=== PATIENT | male | born 1950 | race Caucasian/White ===

== ENCOUNTER → 2016-06-19 | Outpatient (CLI) | payer BC ==
[~2016-06-19] MED LIST: FERROUS SU325 MG/TAB PO; FOLIC ACID 40400 MCG PO; PRAVASTATIN40 MG PO; PRILOSEC OTC20 MG PO; VITAMIN C BUFF500 MG PO; ZESTRIL 20MG TA20 MG PO; ZETIA 10MG TAB10 MG PO
[2016-06-19 17:39] LABS: HIV 1/2 Antibodies Non-Reactive; HIV-1p24 Antigen Non-Reactive
== END ==
LOC: COL.LAB 16:40
PROVIDERS: Orthopaedic Surgery
DX: Z01.812 Encounter for preprocedural laboratory examination (principal); M25.852 Other specified joint disorders, left hip

== ENCOUNTER → 2017-02-20 | Outpatient (CLI) | payer BC ==
[2017-02-20 10:56] LABS: HEMOGLOBIN 12.5 g/dl (13.5-18.0); MEAN CELL VOLUME 91 fl (80.0-100.0); MEAN CORPUSCULAR HEMOGLOBIN 30 pg (27.0-31.0); MEAN CORPUSCULAR HGB CONC 33 g/dl (33.0-37.0); MEAN PLATELET VOLUME 9.4 fl (7.4-10.4); PLATELET COUNT 366 K/mm3 (130-400); RED BLOOD COUNT 4.19 M/mm3 (4.20-5.60); WHITE BLOOD COUNT 8.8 K/mm3 (4.8-10.8)
[2017-02-20 11:20] LABS: ERYTHROCYTE SEDIMENTATION RATE 96 mm/hr (0-30)
== END ==
LOC: COL.LAB 10:24
PROVIDERS: Orthopaedic Surgery
DX: Z01.812 Encounter for preprocedural laboratory examination (principal); M25.552 Pain in left hip

== ENCOUNTER → 2017-03-06 | Outpatient (CLI) | payer BC ==
[2017-03-06 13:20] LABS: HEMATOCRIT 39.8 % (42.0-52.0); HEMOGLOBIN 12.7 g/dl (13.5-18.0); MEAN CELL VOLUME 92 fl (80.0-100.0); MEAN CORPUSCULAR HEMOGLOBIN 29 pg (27.0-31.0); MEAN CORPUSCULAR HGB CONC 32 g/dl (33.0-37.0); PLATELET COUNT 312 K/mm3 (130-400); RED BLOOD COUNT 4.35 M/mm3 (4.20-5.60); WHITE BLOOD COUNT 9.8 K/mm3 (4.8-10.8)
[2017-03-06 13:44] LABS: ERYTHROCYTE SEDIMENTATION RATE 38 mm/hr (0-30)
== END ==
LOC: COL.LAB 11:35
PROVIDERS: Orthopaedic Surgery
DX: M25.552 Pain in left hip (principal)

== ENCOUNTER → 2017-03-20 | Outpatient (CLI) | payer BC ==
[2017-03-20 16:53] LABS: HEMATOCRIT 39.4 % (42.0-52.0); HEMOGLOBIN 12.7 g/dl (13.5-18.0); MEAN CELL VOLUME 90 fl (80.0-100.0); MEAN CORPUSCULAR HEMOGLOBIN 29 pg (27.0-31.0); MEAN CORPUSCULAR HGB CONC 32 g/dl (33.0-37.0); MEAN PLATELET VOLUME 9.6 fl (7.4-10.4); PLATELET COUNT 422 K/mm3 (130-400); RED BLOOD COUNT 4.39 M/mm3 (4.20-5.60); WHITE BLOOD COUNT 8.5 K/mm3 (4.8-10.8)
[2017-03-20 17:25] LABS: ERYTHROCYTE SEDIMENTATION RATE 40 mm/hr (0-30)
== END ==
LOC: COL.LAB 16:28
PROVIDERS: Orthopaedic Surgery
DX: Z47.1 Aftercare following joint replacement surgery (principal); M25.852 Other specified joint disorders, left hip; Z96.642 Presence of left artificial hip joint

== ENCOUNTER → 2017-03-27 | Outpatient (CLI) | payer BC | LOC: COL.RAD 14:00 | DX: M25.551 Pain in right hip (principal); Z96.642 Presence of left artificial hip joint | CPT/HCPCS: J3301; Q9967 ==

== ENCOUNTER → 2017-04-19 | Outpatient (CLI) | payer BC ==
[2017-04-19 11:47] LABS: HEMATOCRIT 37.5 % (42.0-52.0); HEMOGLOBIN 12.2 g/dl (13.5-18.0); MEAN CELL VOLUME 89 fl (80.0-100.0); MEAN CORPUSCULAR HEMOGLOBIN 29 pg (27.0-31.0); MEAN CORPUSCULAR HGB CONC 33 g/dl (33.0-37.0); MEAN PLATELET VOLUME 9.4 fl (7.4-10.4); PLATELET COUNT 314 K/mm3 (130-400); RED BLOOD COUNT 4.23 M/mm3 (4.20-5.60); REDCELL DISTRIBUTION WIDTH-CV 14.4 % (11.5-14.5)
[2017-04-19 12:14] LABS: ERYTHROCYTE SEDIMENTATION RATE 26 mm/hr (0-30)
== END ==
LOC: COL.LAB 11:06
PROVIDERS: Orthopaedic Surgery
DX: M25.552 Pain in left hip (principal)

== ENCOUNTER → 2017-06-24 | Outpatient (CLI) | payer BC ==
[2017-06-24 11:22] LABS: HEMATOCRIT 43.5 % (42.0-52.0); HEMOGLOBIN 14.2 g/dl (13.5-18.0); MEAN CELL VOLUME 90 fl (80.0-100.0); MEAN CORPUSCULAR HEMOGLOBIN 30 pg (27.0-31.0); MEAN CORPUSCULAR HGB CONC 33 g/dl (33.0-37.0); MEAN PLATELET VOLUME 9.8 fl (7.4-10.4); PLATELET COUNT 329 K/mm3 (130-400); RED BLOOD COUNT 4.81 M/mm3 (4.20-5.60); REDCELL DISTRIBUTION WIDTH-CV 12.8 % (11.5-14.5)
[2017-06-24 11:45] LABS: ERYTHROCYTE SEDIMENTATION RATE 27 mm/hr (0-30)
== END ==
LOC: COL.LAB 10:39
PROVIDERS: Orthopaedic Surgery
DX: M25.552 Pain in left hip (principal); Z96.642 Presence of left artificial hip joint; Z98.890 Other specified postprocedural states

== ENCOUNTER → 2017-07-03 | Outpatient (CLI) | payer BC ==
[2017-07-03 12:41] LABS: SYNOVIAL FLUID RBC 2000 /mm3 (0-0); SYNOVIAL FLUID WBC 25766 /mm3 (200-600)
[2017-07-03 13:15] LABS: SYNOVIAL FLUID APPEARANCE CLOUDY; SYNOVIAL FLUID COLOR BROWN
== END ==
LOC: COL.RAD 08:00
PROVIDERS: Orthopaedic Surgery
DX: M25.552 Pain in left hip (principal)

== ENCOUNTER 2017-07-17 12:13 | Inpatient (IN) | payer BC, MEDICARE ==
[~2017-07-17] VITALS: Ht 180.3 cm; Wt 89.9 kg
[~2017-07-17 12:13] MED LIST changes: -PRILOSEC OTC20 MG PO; +PRILOTC PO
[2017-07-29] VITALS (10 sets, daily range): BP systolic 110–150; BP diastolic 71–84; PULSE 84–101; TEMP 98–98.5
[2017-07-29] MEDS ORDERED: VALIUM 5MG T5 MG/TAB PO (05:21)
[2017-07-29] MEDS ORDERED: PRINZIDE 12.5 M1 TA1 PO (05:21)
[2017-07-29] MEDS ORDERED: ZOCOR 20MG20 MG PO (05:22)
[2017-07-29] MEDS ORDERED: NORCO 325 MG-101 TAB PO (05:22)
[2017-07-30] VITALS (7 sets, daily range): BP systolic 106–128; BP diastolic 62–71; PULSE 84–94; TEMP 98.3–100.7
[2017-07-30 06:31] LABS: HEMATOCRIT 32.1 % (42.0-52.0); HEMOGLOBIN 10.5 g/dl (13.5-18.0)
[2017-07-30 08:39] LABS: CREATININE, serum 0.79 mg/dL (0.66-1.25)
[2017-07-31 00:30] VITALS: BP 111/65; PULSE 87; TEMP 99.8
[2017-07-31 04:51] VITALS: BP 112/72; PULSE 83; TEMP 99.4
[2017-07-31 07:05] VITALS: BP 105/67; PULSE 81; TEMP 98.7
[2017-07-31 07:36] LABS: CREATININE, serum 0.81 mg/dL (0.66-1.25)
[2017-07-31 11:31] VITALS: BP 109/67; PULSE 85; TEMP 98
[2017-07-31 16:43] VITALS: BP 117/69; PULSE 89; TEMP 98.7
[2017-07-31 20:17] VITALS: BP 113/36; PULSE 84; TEMP 98.5
[2017-08-01 04:00] VITALS: BP 116/68; PULSE 86; TEMP 98.4
[2017-08-01 06:24] LABS: BASO % 0.5 % (0.0-2.0); EOS # 0.4 (0.0-0.7); EOS % 4.8 % (0-4.0); GRAN # 6.1 (1.4-6.5); GRAN % 69.8 % (42.2-75.2); LYMPH # 1.2 (1.2-3.4); LYMPH % 13.4 % (20.0-51.0); MEAN CELL VOLUME 90 fl (80.0-100.0); MEAN CORPUSCULAR HGB CONC 33 g/dl (33.0-37.0); MEAN PLATELET VOLUME 10.1 fl (7.4-10.4); PLATELET COUNT 275 K/mm3 (130-400); REDCELL DISTRIBUTION WIDTH-CV 12.1 % (11.5-14.5)
[2017-08-01 06:27] LABS: HEMATOCRIT 29.6 % (42.0-52.0); HEMOGLOBIN 9.7 g/dl (13.5-18.0); MEAN CORPUSCULAR HEMOGLOBIN 29 pg (27.0-31.0)
[2017-08-01 06:40] LABS: CREATININE, serum 0.72 mg/dL (0.66-1.25)
[2017-08-01] MEDS ORDERED: HEPARIN LOCK FLU5 M1 IV (07:01)
[2017-08-01] MEDS ORDERED: XARELTO10 MG PO (07:02)
[2017-08-01] MEDS ORDERED: NORCO 325 MG-7.1 TAB PO (07:03)
[2017-08-01] MEDS ORDERED: ROXICODONE 55 MG/TAB PO (07:04)
[2017-08-01] MEDS ORDERED: NS INT FLUSH 1010 ML IV (07:04)
[2017-08-01] MEDS ORDERED: Patient's Own Medica PO (07:05)
[2017-08-01] MEDS ORDERED: SENOKOT S 50 MG1 TAB PO (07:06)
[2017-08-01] MEDS ORDERED: VANCOCIN HCL1 GM IV (07:22)
[2017-08-01] MEDS ORDERED: ROCEPHIN 2GM VIAL21 IJ (07:22)
[2017-08-01 07:48] VITALS: BP 111/67; PULSE 87; TEMP 99.1
[2017-08-01 10:14] VITALS: BP 111/67; PULSE 87; TEMP 99.1
[2017-08-01 11:00] VITALS: BP 112/70; PULSE 81; TEMP 99
== END 2017-08-01 13:10 | DRG 468 ==
LOC: SURG 07-23 15:45 → JCC 07-29 06:03
PROVIDERS: Internal Medicine Infectious Disease; Orthopaedic Surgery
PROC: 0SPB09Z Removal of Liner from Left Hip Joint, Open Approach (ICD-10-PCS; 2017-07-29)
PROC: 0SUS09Z Supplement Left Hip Joint, Femoral Surface with Liner, Open Approach (ICD-10-PCS; 2017-07-29)
PROC: 0SPS0JZ Removal of Synthetic Substitute from Left Hip Joint, Femoral Surface, Open Approach (ICD-10-PCS; 2017-07-29)
PROC: 0SBB0ZZ Excision of Left Hip Joint, Open Approach (ICD-10-PCS; 2017-07-29)
PROC: 0SRS0JZ Replacement of Left Hip Joint, Femoral Surface with Synthetic Substitute, Open Approach (ICD-10-PCS; principal; 2017-07-29 07:30)
DX: T84.52XA Infection and inflammatory reaction due to internal left hip prosthesis, initial encounter (principal); I10 Essential (primary) hypertension; Z87.891 Personal history of nicotine dependence; Z96.642 Presence of left artificial hip joint
CPT/HCPCS: A4314; A9284; C1751; C1776; C1894; J0690; J0696; J1644; J1885; J2250; J2270; J2704; J2765; J3010; J3370; J7050; J7120

== ENCOUNTER → 2017-08-01 | Outpatient (REF) ==
[~2017-08-01] MED LIST changes: +HEPARIN LOCK FLU5 M1 IV; +NORCO 325 MG-101 TAB PO; +NORCO 325 MG-7.1 TAB PO; +NS INT FLUSH 1010 ML IV; +PRINZIDE 12.5 M1 TA1 PO; +Patient's Own Medica PO; +ROCEPHIN 2GM VIAL21 IJ; +ROXICODONE 55 MG/TAB PO; +SENOKOT S 50 MG1 TAB PO; +VALIUM 5MG T5 MG/TAB PO; +VANCOCIN HCL1 GM IV; +XARELTO10 MG PO; +ZOCOR 20MG20 MG PO
== END ==
LOC: ZCOL.LAB 17:27
DX: Z16.21 Resistance to vancomycin (principal)

== ENCOUNTER → 2017-08-08 | Outpatient (REF) | LOC: ZCOL.LAB 09:35 | DX: Z96.642 Presence of left artificial hip joint (principal) ==

== ENCOUNTER → 2017-08-10 | Outpatient (REF) | LOC: ZCOL.LAB 09:36 | DX: Z96.642 Presence of left artificial hip joint (principal) ==

== ENCOUNTER → 2017-08-14 | Outpatient (CLI) | payer BC | LOC: COL.RAD 08-13 13:00 | DX: R59.1 Generalized enlarged lymph nodes (principal); K68.12 Psoas muscle abscess; N20.0 Calculus of kidney; N28.1 Cyst of kidney, acquired; K80.20 Calculus of gallbladder without cholecystitis without obstruction; R50.9 Fever, unspecified; Z96.642 Presence of left artificial hip joint | CPT/HCPCS: Q9967 ==

== ENCOUNTER → 2017-08-30 | Outpatient (CLI) | payer BC ==
[2017-08-30 11:30] LABS: HEMATOCRIT 41.3 % (42.0-52.0); HEMOGLOBIN 13.1 g/dl (13.5-18.0); MEAN CELL VOLUME 89 fl (80.0-100.0); MEAN CORPUSCULAR HEMOGLOBIN 28 pg (27.0-31.0); MEAN CORPUSCULAR HGB CONC 32 g/dl (33.0-37.0); MEAN PLATELET VOLUME 9.8 fl (7.4-10.4); PLATELET COUNT 376 K/mm3 (130-400); RED BLOOD COUNT 4.65 M/mm3 (4.20-5.60); REDCELL DISTRIBUTION WIDTH-CV 14.4 % (11.5-14.5)
[2017-08-30 11:52] LABS: ERYTHROCYTE SEDIMENTATION RATE 15 mm/hr (0-30)
== END ==
LOC: COL.LAB 10:50
PROVIDERS: Orthopaedic Surgery
DX: Z47.1 Aftercare following joint replacement surgery (principal); M25.552 Pain in left hip; Z96.642 Presence of left artificial hip joint

== ENCOUNTER → 2017-09-13 | Outpatient (CLI) | payer BC | LOC: COL.LAB 11:36 | DX: Z01.89 Encounter for other specified special examinations (principal) ==

== ENCOUNTER → 2017-09-23 | Outpatient (CLI) | payer BC ==
[~2017-09-23] VITALS: Ht 180.3 cm; Wt 90.4 kg
[~2017-09-23] MED LIST changes: +PRINIVIL20 MG PO; +ZYRTEC 10MG10 MG PO
[2017-09-23 10:29] VITALS: BP 110/86; PULSE 90
== END ==
LOC: COL.RAD 09:45
DX: E04.1 Nontoxic single thyroid nodule (principal); Z68.27 Body mass index [BMI] 27.0-27.9, adult

== ENCOUNTER → 2017-12-24 | Outpatient (RCR) | payer BC | END | disposition home or self-care (01) | LOC: WSPT | DX: Z47.89 Encounter for other orthopedic aftercare (principal); Z96.642 Presence of left artificial hip joint ==

== ENCOUNTER → 2018-01-15 | Outpatient (CLI) | payer BC | LOC: COL.LAB 09:34 | DX: M25.552 Pain in left hip (principal); Z96.641 Presence of right artificial hip joint ==

== ENCOUNTER 2018-02-11 14:15 | Outpatient (RCR) | payer BC | END 2018-04-07 | disposition home or self-care (01) | LOC: WSPT | DX: Z47.1 Aftercare following joint replacement surgery (principal); Z96.642 Presence of left artificial hip joint ==

== ENCOUNTER → 2018-03-06 | Outpatient (CLI) | payer BC | LOC: COL.LAB 14:21 | DX: M25.552 Pain in left hip (principal); Z96.642 Presence of left artificial hip joint ==

== ENCOUNTER → 2018-04-17 | Outpatient (CLI) | payer BC | LOC: COL.LAB 11:08 | DX: M25.552 Pain in left hip (principal); Z96.642 Presence of left artificial hip joint ==

== ENCOUNTER → 2018-07-02 | Outpatient (CLI) | payer BC | LOC: COL.LAB 10:14 | DX: M25.552 Pain in left hip (principal); Z96.642 Presence of left artificial hip joint ==

== ENCOUNTER → 2018-08-05 | Outpatient (CLI) | payer BC ==
[2018-08-05 15:53] LABS: SYNOVIAL FL. MONONUCLEAR 93.6 % (0-75); SYNOVIAL FLUID RBC 3000 /mm3 (0-0); SYNOVIAL FLUID WBC 15001 /mm3 (200-600)
[2018-08-05 16:14] LABS: SYNOVIAL FLUID COLOR AMBER
[2018-08-05 16:15] LABS: SYNOVIAL FLUID APPEARANCE TURBID
== END ==
LOC: COL.RAD 13:53
PROVIDERS: Orthopaedic Surgery
DX: Z51.89 Encounter for other specified aftercare (principal); Z98.890 Other specified postprocedural states

== ENCOUNTER → 2018-10-30 | Outpatient (CLI) | payer BC | LOC: COL.LAB 13:22 | DX: T84.89XA Other specified complication of internal orthopedic prosthetic devices, implants and grafts, initial encounter (principal); M25.552 Pain in left hip; Z96.642 Presence of left artificial hip joint ==

== ENCOUNTER → 2019-01-12 | Outpatient (CLI) | payer BC | LOC: COL.LAB 11:13 | DX: M25.552 Pain in left hip (principal); Z96.642 Presence of left artificial hip joint ==

== ENCOUNTER → 2019-05-01 | Outpatient (CLI) | payer BC | LOC: COL.LAB 11:49 | DX: M25.552 Pain in left hip (principal) ==

== ENCOUNTER → 2019-06-18 | Outpatient (CLI) | payer BC | LOC: COL.LAB 11:30 | DX: M25.552 Pain in left hip (principal); Z98.890 Other specified postprocedural states ==

== ENCOUNTER → 2019-11-03 | Outpatient (CLI) | payer BC | LOC: COL.LAB 11:13 | DX: M25.552 Pain in left hip (principal); Z96.642 Presence of left artificial hip joint ==

== ENCOUNTER → 2020-02-09 | Outpatient (CLI) | payer BC | LOC: COL.LAB 15:32 | DX: M25.552 Pain in left hip (principal); Z96.642 Presence of left artificial hip joint ==

== ENCOUNTER → 2020-05-26 | Outpatient (CLI) | payer BC | LOC: COL.LAB 11:24 | DX: M25.552 Pain in left hip (principal) ==

== ENCOUNTER → 2020-09-16 | Outpatient (CLI) | payer BC ==
[2020-09-21 18:33] LABS: CHROMIUM-SERUM 2.3 ng/mL (<0.3); COBALT SERUM 12.4 ng/mL (())
== END ==
LOC: COL.LAB 12:03
PROVIDERS: Orthopaedic Surgery
DX: M25.552 Pain in left hip (principal); Z96.642 Presence of left artificial hip joint

== ENCOUNTER → 2020-12-05 | Outpatient (CLI) | payer MEDICARE | LOC: COL.RAD 13:59 | DX: Z12.2 Encounter for screening for malignant neoplasm of respiratory organs (principal); Z87.891 Personal history of nicotine dependence ==

== ENCOUNTER → 2021-08-01 | Outpatient (CLI) | payer MEDICARE ==
[2021-08-04 21:25] LABS: CHROMIUM-SERUM 2.5 ng/mL (<0.3); COBALT SERUM 10.2 ng/mL (())
== END ==
LOC: COL.LAB 10:53
PROVIDERS: Orthopaedic Surgery
DX: M25.552 Pain in left hip (principal); Z96.642 Presence of left artificial hip joint

== ENCOUNTER 2021-08-17 16:00 | Outpatient (RCR) | payer MEDICARE | END 2021-08-19 | disposition still patient (30) | LOC: MKS.ESL.PT | DX: M54.50 Low back pain, unspecified (principal) ==

== ENCOUNTER 2021-08-24 12:53 | Outpatient (RCR) | payer MEDICARE | END 2021-09-19 | disposition home or self-care (01) | LOC: MKS.ESL.PT | DX: M54.50 Low back pain, unspecified (principal) ==

== ENCOUNTER → 2022-02-19 | Outpatient (CLI) | payer MEDICARE ==
[2022-02-21 21:20] LABS: CHROMIUM-SERUM 2.5 ng/mL (<0.3); COBALT SERUM 12.9 ng/mL (())
== END ==
LOC: COL.LAB 11:37
PROVIDERS: Orthopaedic Surgery
DX: M25.552 Pain in left hip (principal); Z96.642 Presence of left artificial hip joint

== ENCOUNTER → 2022-08-16 | Outpatient (CLI) | payer MEDICARE ==
[2022-08-21 21:37] LABS: CHROMIUM-SERUM 2.4 ng/mL (<0.3); COBALT SERUM 11.4 ng/mL (())
== END ==
LOC: COL.LAB 11:19
PROVIDERS: Orthopaedic Surgery
DX: M25.552 Pain in left hip (principal)

== ENCOUNTER → 2023-01-23 | Outpatient (CLI) | payer MEDICARE | LOC: COL.RAD 01-22 09:00 | DX: E04.1 Nontoxic single thyroid nodule (principal) ==